=== PATIENT | female | born 1970 | race Caucasian/White ===

== ENCOUNTER 2016-08-26 23:26 | Emergency (ER) | payer SELFPAY ==
[~2016-08-26 23:26] MED LIST: DOXY100T PO; LORT5TAB PO; SULF-154 PO; Z.0.NO CURRENT MEDS
[2016-08-26 23:28] VITALS: BP 135/85; PULSE 86; RESP 18; TEMP 98.1; O2SAT 97
[2016-08-28] MEDS ORDERED: BUSP10TA PO (14:56)
== END 2016-08-27 00:51 | disposition left against medical advice (07) ==
LOC: NED 23:26
DX: R68.89 Other general symptoms and signs (principal)
CPT/HCPCS: 99281

== ENCOUNTER 2016-08-27 13:21 | Emergency (ER) | payer SELFPAY ==
[~2016-08-27] VITALS: Ht 154.9 cm; Wt 61.0 kg
[2016-08-27 13:23] VITALS: BP 116/62; PULSE 84; RESP 20; TEMP 97.9; O2SAT 97
--- NOTE | 2016-08-27 13:53 | PD ---
HPI . audio hallucinations for 1 mt Chief Complaint: Psychiatric Symptoms Time Seen by Provider: 13:53 Travel History International Travel<30 days: No Contact w/Intl Traveler<30days: No Traveled to known affect area: No History of Present Illness HPI 46-year-old female with history of depression here with complaints of audio hallucinations for the past month. Patient says that she was previously enrolled in a psych facility at a three-day observation period for her issues and no abnormalities were found. Patient says she is continue to experience audio hallucinations for one month. Initially she said they were just little noises, but now she hears voices. These voices have often times told her to harm herself or others, however she does not have any suicidal or homicidal ideation. She is concerned as the voices seem to be getting more prominent. She tells me she is very concerned because she does not have any family history of schizophrenia or other mental disorders. She has become a little bit overwhelmed that she is reading a lot of information on the Internet. She is from [place] and decided to come to the emergency department here as she has family members locally. She has no medical complaints. [facility] Past Medical History Tubal Ligation: Yes Social History Alcohol Use: No Tobacco Use: No Substance Use: No Allergies-Medications (Allergen,Severity, Reaction): Coded Allergies: Ibuprofen (Verified Allergy, Severe, RASH, 08/27/16) Robitussin (Verified Allergy, Mild, RASH, 08/27/16) Reported Meds & Prescriptions Reported Meds & Active Scripts Active Lortab 5/500 (Acetaminophen/Hydrocodone Bitart) 5 Mg/500 Mg Tab 1 Tab PO Q6HPRN FOR PAIN Septra Ds (Trimethoprim/Sulfamethoxazole) Tab 1 Tab PO BID Doxycycline Hyclate 100 Mg Tab 100 Mg PO BID Reported No Current Meds (Miscellaneous Medication) Misc Review of Systems General / Constitutional: No: Fever Eyes: No: Visual changes HENT: No: Headaches Cardiovascular: No: Chest Pain or Discomfort Respiratory: No: Shortness of Breath Gastrointestinal: No: Abdominal Pain Genitourinary: No: Dysuria Musculoskeletal: No: Pain Skin: No Rash Neurologic: No: Weakness Psychiatric: Positive: Other (audio hallucinations), No: Depression Endocrine: No: Polydipsia Hematologic/Lymphatic: No: Easy Bruising Physical Exam Narrative GENERAL: AAO x 3, no acute distress, Well-nourished, well-developed patient. SKIN: Warm and dry. No visible rashes or bruising. HEAD: Normocephalic and atraumatic. EYES: No scleral icterus. No injection or drainage. EOM intact, PERRLA ENT: No nasal drainage noted. Mucous membranes pink. Airway patent. NECK: Supple, trachea midline. No JVD. CARDIOVASCULAR: Regular rate and rhythm without murmurs, gallops, or rubs. RESPIRATORY: Breath sounds equal bilaterally. No accessory muscle use. No rhonchi or rales. GASTROINTESTINAL: Abdomen soft, non-tender, nondistended. EXTREMITIES: No cyanosis or edema. BACK: Nontender without obvious deformity. No CVA tenderness. NEURO: CN II through XII intact, strength in upper extremities normal, upper and lower extremity strength 5 out of 5, finger-nose test normal, no focal neuro deficits PSYCH: AAO x 3, normal affect. Data Data Last Documented VS Vital Signs Date Time Temp Pulse Resp B/P Pulse Ox O2 Delivery O2 Flow Rate FiO2 08/27/16 13:23 97.9 84 20 116/62 97 Room Air Orders Complete Blood Count With Diff (08/27/16 13:54) Comprehensive Metabolic Panel (08/27/16 13:54) Urinalysis - C+S If Indicated (08/27/16 13:54) Beta Hcg (Quant/Titer) (08/27/16 13:54) Psych Screen (08/27/16 13:54) Drug Screen, Random Urine (08/27/16 13:54) Alcohol (Ethanol) (08/27/16 13:54) Labs Laboratory Tests Test 08/27/16 08/27/16 08/27/16 13:54 14:40 14:45 Urine Color LIGHT-YELLOW Urine Turbidity CLEAR Urine pH 6.0 Urine Specific [place] 1.006 Urine Protein NEG mg/dL Urine Glucose (UA) NEG mg/dL Urine Ketones NEG mg/dL Urine Occult Blood TRACE Urine Nitrite NEG Urine Bilirubin NEG Urine Urobilinogen LESS THAN 2.0 MG/DL Urine Leukocyte Esterase NEG Urine RBC LESS THAN 1 /hpf Urine WBC LESS THAN 1 /hpf Urine Squamous Epithelial 1 /hpf Cells Microscopic Urinalysis Comment CULT NOT INDICATED Urine Opiates Screen NEG Urine Barbiturates Screen NEG Urine Amphetamines Screen NEG Urine Benzodiazepines Screen NEG Urine Cocaine Screen NEG Urine Cannabinoids Screen NEG White Blood Count 7.6 TH/MM3 Red Blood Count 4.63 MIL/MM3 Hemoglobin 14.4 GM/DL Hematocrit 41.4 % Mean Corpuscular Volume 89.4 FL Mean Corpuscular Hemoglobin 31.0 PG Mean Corpuscular Hemoglobin 34.7 % Concent Red Cell Distribution Width 12.2 % Platelet Count 234 TH/MM3 Mean Platelet Volume 9.3 FL Neutrophils (%) (Auto) 65.5 % Lymphocytes (%) (Auto) 24.5 % Monocytes (%) (Auto) 6.4 % Eosinophils (%) (Auto) 2.8 % Basophils (%) (Auto) 0.8 % Neutrophils # (Auto) 5.0 TH/MM3 Lymphocytes # (Auto) 1.9 TH/MM3 Monocytes # (Auto) 0.5 TH/MM3 Eosinophils # (Auto) 0.2 TH/MM3 Basophils # (Auto) 0.1 TH/MM3 CBC Comment DIFF FINAL Differential Comment Sodium Level 141 MEQ/L Potassium Level 3.8 MEQ/L Chloride Level 105 MEQ/L Carbon Dioxide Level 30.2 MEQ/L Anion Gap 6 MEQ/L Blood Urea Nitrogen 9 MG/DL Creatinine 0.94 MG/DL Estimat Glomerular Filtration 64 ML/MIN Rate Random Glucose 84 MG/DL Calcium Level 9.3 MG/DL Total Bilirubin 0.3 MG/DL Aspartate Amino Transf 16 U/L (AST/SGOT) Alanine Aminotransferase 24 U/L (ALT/SGPT) Alkaline Phosphatase 62 U/L Total Protein 7.2 GM/DL Albumin 3.9 GM/DL Human Chorionic Gonadotropin, LESS THAN 1 Quant MIU/ML Ethyl Alcohol Level LESS THAN 3 MG/DL MDM Medical Decision Making Medical Screen Exam Complete: Yes Emergency Medical Condition: Yes Medical Record Reviewed: Yes Differential Diagnosis Schizophrenia, drug induced mood disorder, depression, bipolar disorder, Narrative Course 46-year-old female here with complaints of auditory hallucinations. The voices have become a little bit more prominent over the past month. I will go ahead and check labs and if they're within normal limits, we will proceed with a psych screen. Labs reviewed and WNL. Patient cleared for psych screen. Laboratory Tests Test 08/27/16 08/27/16 08/27/16 13:54 14:40 14:45 Urine Color LIGHT-YELLOW Urine Turbidity CLEAR Urine pH 6.0 Urine Specific [place] 1.006 Urine Protein NEG mg/dL Urine Glucose (UA) NEG mg/dL Urine Ketones NEG mg/dL Urine Occult Blood TRACE Urine Nitrite NEG Urine Bilirubin NEG Urine Urobilinogen LESS THAN 2.0 MG/DL Urine Leukocyte Esterase NEG Urine RBC LESS THAN 1 /hpf Urine WBC LESS THAN 1 /hpf Urine Squamous Epithelial 1 /hpf Cells Microscopic Urinalysis Comment CULT NOT INDICATED Urine Opiates Screen NEG Urine Barbiturates Screen NEG Urine Amphetamines Screen NEG Urine Benzodiazepines Screen NEG Urine Cocaine Screen NEG Urine Cannabinoids Screen NEG White Blood Count 7.6 TH/MM3 Red Blood Count 4.63 MIL/MM3 Hemoglobin 14.4 GM/DL Hematocrit 41.4 % Mean Corpuscular Volume 89.4 FL Mean Corpuscular Hemoglobin 31.0 PG Mean Corpuscular Hemoglobin 34.7 % Concent Red Cell Distribution Width 12.2 % Platelet Count 234 TH/MM3 Mean Platelet Volume 9.3 FL Neutrophils (%) (Auto) 65.5 % Lymphocytes (%) (Auto) 24.5 % Monocytes (%) (Auto) 6.4 % Eosinophils (%) (Auto) 2.8 % Basophils (%) (Auto) 0.8 % Neutrophils # (Auto) 5.0 TH/MM3 Lymphocytes # (Auto) 1.9 TH/MM3 Monocytes # (Auto) 0.5 TH/MM3 Eosinophils # (Auto) 0.2 TH/MM3 Basophils # (Auto) 0.1 TH/MM3 CBC Comment DIFF FINAL Differential Comment Sodium Level 141 MEQ/L Potassium Level 3.8 MEQ/L Chloride Level 105 MEQ/L Carbon Dioxide Level 30.2 MEQ/L Anion Gap 6 MEQ/L Blood Urea Nitrogen 9 MG/DL Creatinine 0.94 MG/DL Estimat Glomerular Filtration 64 ML/MIN Rate Random Glucose 84 MG/DL Calcium Level 9.3 MG/DL Total Bilirubin 0.3 MG/DL Aspartate Amino Transf 16 U/L (AST/SGOT) Alanine Aminotransferase 24 U/L (ALT/SGPT) Alkaline Phosphatase 62 U/L Total Protein 7.2 GM/DL Albumin 3.9 GM/DL Human Chorionic Gonadotropin, LESS THAN 1 Quant MIU/ML Ethyl Alcohol Level LESS THAN 3 MG/DL Diagnosis Primary Impression: Auditory hallucination Condition: Stable Jessica Fernandez Aug 27, 2016 13:53
[2016-08-27 15:13] LABS: BLOOD, URINE TRACE (NEG); COMMENT (UR) CULT NOT INDICATED; CULTURE IF INDICATED CULT NOT INDICATED; GLUCOSE,URINE NEG (NEG); KETONE, URINE NEG (NEG); NITRITE,URINE NEG (NEG); SQUAMOUS EPITHELIAL CELL URINE 1 /hpf (0-5); URINE COLOR LIGHT-YELLOW (YELLW/STRAW)
[2016-08-27 15:13] LABS: BASOPHIL # 0.1 TH/MM3 (0-0.2); BASOPHIL % 0.8 % (0.0-2.0); EOSINOPHIL # 0.2 TH/MM3 (0-0.4); EOSINOPHIL % 2.8 % (0.0-4.0); HEMATOCRIT 41.4 % (35.0-46.0); HEMO FLAGS DIFF FINAL; LYMPH % 24.5 % (9.0-44.0); LYMPHOCYTE # 1.9 TH/MM3 (1.0-4.8); MEAN CELL VOLUME 89.4 FL (80.0-100.0); MEAN CORPUSCULAR HGB CONC 34.7 % (32.0-36.0); MONO % 6.4 % (0.0-8.0); NEUT % 65.5 % (16.0-70.0); PLATELET COUNT 234 TH/MM3 (150-450); RED BLOOD COUNT 4.63 MIL/MM3 (4.00-5.30); RED CELL DISTRIBUTION WIDTH 12.2 % (11.6-17.2); WHITE BLOOD COUNT 7.6 TH/MM3 (4.0-11.0)
[2016-08-27 15:18] LABS: AMPHETAMINE, URINE NEG (NEG); BARBITURATES, URINE NEG (NEG); COCAINE, URINE NEG (NEG)
[2016-08-27 15:33] LABS: ANION GAP 6 MEQ/L (5-15); AST (GOT) 16 U/L (15-37); BICARBONATE 30.2 MEQ/L (21.0-32.0); BLOOD UREA NITROGEN 9 MG/DL (7-18); CHLORIDE 105 MEQ/L (98-107); GLOMERULAR FILTRATION RATE 64 ML/MIN (>89); POTASSIUM 3.8 MEQ/L (3.5-5.1); SODIUM (NA) 141 MEQ/L (136-145)
[2016-08-27 15:38] LABS: ALKALINE PHOSPHATASE 62 U/L (45-117); ALT (GPT) 24 U/L (10-53); BETA HCG QUANT LESS THAN 1 MIU/ML (0-5); TOTAL BILIRUBIN ADULT 0.3 MG/DL (0.2-1.0)
[2016-08-27 16:50] VITALS: BP 122/76; PULSE 72; RESP 16; O2SAT 99
[2016-08-27 18:29] VITALS: BP 126/73; PULSE 80; RESP 16; TEMP 97.6; O2SAT 98
[2016-08-27] MEDS ORDERED: ACETAMINOPHEN 325 MG TAB PO ONE (20:45)
[2016-08-27 22:39] VITALS: BP 116/70; PULSE 80; RESP 18; O2SAT 99
[2016-08-28 02:42] VITALS: BP 113/59; PULSE 67; RESP 18
[2016-08-28 06:14] VITALS: BP 119/63; PULSE 88; RESP 20
[2016-08-28 09:37] VITALS: BP 119/63; TEMP 98.3
[2016-08-28] MEDS ORDERED: BUSP10TA PO (14:56)
== END 2016-08-28 09:30 | disposition home or self-care (01) ==
LOC: NEPD 13:21 → NEPJ 08-28 09:30
DX: R44.0 Auditory hallucinations (principal)
CPT/HCPCS: 80053; 80307; 81001; 84702; 85025; 99284

== ENCOUNTER 2016-08-28 13:52 | Emergency (ER) | payer SELFPAY ==
[~2016-08-28] VITALS: Ht 154.9 cm; Wt 60.0 kg
[2016-08-28 13:53] VITALS: BP 132/77; PULSE 86; RESP 20; TEMP 98.3; O2SAT 97
--- NOTE | 2016-08-28 13:58 | PD ---
Physical Exam Date Seen by Provider: Aug 28, 2016 Time Seen by Provider: 13:58 Data Data Last Documented VS Vital Signs Date Time Temp Pulse Resp B/P Pulse Ox O2 Delivery O2 Flow Rate FiO2 08/28/16 13:53 98.3 86 20 132/77 97 Room Air MDM Supervised Visit with MARLEEN: Indira Martin Aug 28, 2016 13:58
--- NOTE | 2016-08-28 14:14 | PD ---
Physical Exam Date Seen by Provider: Aug 28, 2016 Time Seen by Provider: 14:12 Data Data Last Documented VS Vital Signs Date Time Temp Pulse Resp B/P Pulse Ox O2 Delivery O2 Flow Rate FiO2 08/28/16 13:53 98.3 86 20 132/77 97 Room Air [facility] Supervised Visit with MARLEEN: No Narrative Course 46 YO F seeks voluntary psychiatric evaluation. Denies SI/ HI. States that she was here yesterday, doesn't "fell well enough to be discharged." Endorses history of anxiety. Vitals reviewed. Awaiting bed placement. Indira Parada Aug 28, 2016 14:14
[2016-08-28] MEDS ORDERED: BUSP10TA PO (14:56)
--- NOTE | 2016-08-28 14:58 | PD ---
HPI Chief Complaint: Psychiatric Symptoms Time Seen by Provider: 14:53 Travel History International Travel<30 days: No Contact w/Intl Traveler<30days: No Traveled to known affect area: No History of Present Illness HPI 46 yo female here for voluntary psych evaluation. Patient has a history of adjustment disorder and depression and she was just released this morning for same. Denies any new symptoms other than feeling more anxious because she is "alone" at this time. She just started a new medication 3 weeks ago. SHe is from [place]. Denies any suicidal or homicidal ideation. No drug abuse. She is staying here to house sit for her mother. no pain. She did not took her meds yesterday or today. Unclear motive or her coming here today. She is very anxious and not a good historian. PFSH Past Medical History Tubal Ligation: Yes Social History Alcohol Use: No Tobacco Use: No Substance Use: Yes Allergies-Medications (Allergen,Severity, Reaction): Coded Allergies: Ibuprofen (Verified Allergy, Severe, RASH, 08/27/16) Robitussin (Verified Allergy, Mild, RASH, 08/27/16) Reported Meds & Prescriptions Reported Meds & Active Scripts Active Lortab 5/500 (Acetaminophen/Hydrocodone Bitart) 5 Mg/500 Mg Tab 1 Tab PO Q6HPRN FOR PAIN Septra Ds (Trimethoprim/Sulfamethoxazole) Tab 1 Tab PO BID Doxycycline Hyclate 100 Mg Tab 100 Mg PO BID Reported No Current Meds (Miscellaneous Medication) Misc Review of Systems ROS Limitations: Psychotic Except as stated in HPI: all other systems reviewed are Neg Physical Exam Exam Limitations: Psychotic Narrative GENERAL: SKIN: Warm and dry. HEAD: Atraumatic. Normocephalic. EYES: Pupils equal and round. No scleral icterus. No injection or drainage. ENT: No nasal bleeding or discharge. Mucous membranes pink and moist. Tongue is midline. No uvula deviation. NECK: Trachea midline. No JVD. CARDIOVASCULAR: Regular rate and rhythm. No murmurs, S3, S4. RESPIRATORY: No accessory muscle use. Clear to auscultation. Breath sounds equal bilaterally. GASTROINTESTINAL: Abdomen soft, non-tender, nondistended. Hepatic and splenic margins not palpable. MUSCULOSKELETAL: Extremities without clubbing, cyanosis, or edema. No obvious deformities. Full range of motion of the upper and lower extremities bilaterally. 2+ pulses bilaterally. NEUROLOGICAL: Awake and alert. No obvious cranial nerve deficits. Motor grossly within normal limits. Five out of 5 muscle strength in the arms and legs. Normal speech. PSYCHIATRIC: Anxious mood and affect; insight and judgment normal. Data Data Last Documented VS Vital Signs Date Time Temp Pulse Resp B/P Pulse Ox O2 Delivery O2 Flow Rate FiO2 08/28/16 13:53 98.3 86 20 132/77 97 Room Air MDM Medical Decision Making Medical Screen Exam Complete: Yes Emergency Medical Condition: Yes Medical Record Reviewed: Yes Differential Diagnosis Depression versus suicidal ideation versus anxiety versus adjustment disorder versus mood disorder versus bipolar disorder versus schizophrenia versus paranoid disorder versus psychosis versus substance abuse versus alcohol abuse versus alcohol induced psychosis versus homicidality addition versus cutting versus personality disorder Narrative Course 46-year-old female that presents to the ED for evaluation of psych. Patient was properly examined and was found to have signs and symptoms consistent psychiatric illness. No sign of acute medical distress. Patient was just seen in have labs yesterday. No need for new once today. Patient was just released less than 8 hours ago. Patient was medically cleared. Okay to be seen by psych. Mental health screening was discussed with the patient. Diagnosis Primary Impression: Adjustment disorder with anxiety Rolo Stauffer Aug 28, 2016 14:58
[2016-08-28 15:28] VITALS: BP 132/77; TEMP 98
== END 2016-08-28 15:30 | disposition home or self-care (01) ==
LOC: NEPJ 13:52
DX: F43.22 Adjustment disorder with anxiety (principal); F33.8 Other recurrent depressive disorders
CPT/HCPCS: 99284

== ENCOUNTER 2016-08-28 18:12 | Emergency (ER) | payer SELFPAY ==
[~2016-08-28] VITALS: Ht 154.9 cm; Wt 60.0 kg
[~2016-08-28 18:12] MED LIST changes: +BUSP10TA PO
[2016-08-28 18:27] VITALS: BP 125/72; PULSE 82; RESP 16; TEMP 98; O2SAT 98
== END 2016-08-28 19:06 | disposition left against medical advice (07) ==
LOC: NED 18:12
DX: F41.9 Anxiety disorder, unspecified (principal)
CPT/HCPCS: 99281

== ENCOUNTER 2016-11-06 21:45 | Emergency (ER) | payer SELFPAY ==
[~2016-11-06] VITALS: Ht 154.9 cm; Wt 58.0 kg
[2016-11-06 21:56] VITALS: BP 126/70; PULSE 74; RESP 18; TEMP 98.2; O2SAT 99
[2016-11-06 23:28] LABS: AUTOMATED NEUTROPHIL # 5.2 TH/MM3 (1.8-7.7); BASOPHIL % 0.4 % (0.0-2.0); EOSINOPHIL # 0.2 TH/MM3 (0-0.4); EOSINOPHIL % 2.2 % (0.0-4.0); HEMATOCRIT 41.8 % (35.0-46.0); HEMO FLAGS DIFF FINAL; LYMPH % 25.2 % (9.0-44.0); MEAN CORPUSCULAR HEMOGLOBIN 31.2 PG (27.0-34.0); MEAN CORPUSCULAR HGB CONC 34.3 % (32.0-36.0); MONO % 7.1 % (0.0-8.0); NEUT % 65.1 % (16.0-70.0); PLATELET COUNT 241 TH/MM3 (150-450); RED CELL DISTRIBUTION WIDTH 12.4 % (11.6-17.2)
[2016-11-06] MEDS ORDERED: BUSP30TA PO (23:30)
[2016-11-06 23:52] LABS: ANION GAP 6 MEQ/L (5-15); AST (GOT) 16 U/L (15-37); BICARBONATE 27.7 MEQ/L (21.0-32.0); BLOOD UREA NITROGEN 14 MG/DL (7-18); CHLORIDE 104 MEQ/L (98-107); GLOMERULAR FILTRATION RATE 59 ML/MIN (>89); POTASSIUM 3.4 MEQ/L (3.5-5.1); SODIUM (NA) 138 MEQ/L (136-145)
[2016-11-06 23:53] LABS: ALT (GPT) 28 U/L (10-53)
[2016-11-06 23:55] LABS: ALCOHOL LESS THAN 3 MG/DL (0-5); ALKALINE PHOSPHATASE 65 U/L (45-117); TOTAL BILIRUBIN ADULT 0.5 MG/DL (0.2-1.0)
--- NOTE | 2016-11-06 23:58 | PD ---
HPI Chief Complaint: Psychiatric Symptoms Time Seen by Provider: 23:48 Travel History International Travel<30 days: No Contact w/Intl Traveler<30days: No Traveled to known affect area: No History of Present Illness HPI 46-year-old female presents to the emergency department for psychiatric evaluation. Patient is voluntary. She states that she is having auditory hallucinations since May. Patient had a 3 day stay at a mental health facility called [facility]. She was diagnosed with anxiety and given a prescription for BuSpar. She states the auditory hallucinations still remain. She states that they tell her to do strange things such as to turn the light off or do certain things. She also has some tactile hallucinations of someone touching her. The patient has not been following up outpatient for this issue. Patient denies any headache, fevers, chest pain, shortness breath, abdominal pain, nausea, vomiting, diarrhea. Patient is on BuSpar for anxiety. She is not on any other medications. Patient denies any suicidal or homicidal ideation. Patient states she wants to know why she is having the hallucinations. She states that she has changed everything her life including buying new clothes, eating healthier, but the auditory hallucinations remain. [facility] Past Medical History Medical History: Denies Significant Hx ?: Not LMP: 2 months ago Tubal Ligation: Yes Past Surgical History Surgical History: No Previous Surgery Social History Alcohol Use: Yes (rare) Tobacco Use: No Substance Use: No Allergies-Medications (Allergen,Severity, Reaction): Coded Allergies: ibuprofen (Unverified Allergy, Severe, RASH, 11/03/16) guaifenesin (Unverified Allergy, Mild, RASH, 11/03/16) shellfish derived (Verified Allergy, Unknown, 11/06/16) Reported Meds & Prescriptions Reported Meds & Active Scripts Active Reported Buspirone (Buspirone HCl) 30 Mg Tab 30 Mg PO DAILY Review of Systems Except as stated in HPI: all other systems reviewed are Neg Physical Exam Narrative GENERAL: Well-nourished, well-developed female patient, ambulatory. Afebrile. SKIN: Focused skin assessment warm/dry. HEAD: Normocephalic. Atraumatic. EYES: No scleral icterus. No injection or drainage. NECK: Supple, trachea midline. No JVD or lymphadenopathy. CARDIOVASCULAR: Regular rate and rhythm without murmurs, gallops, or rubs. RESPIRATORY: Breath sounds equal bilaterally. No accessory muscle use. Lungs sounds are clear to auscultation. GASTROINTESTINAL: Abdomen soft, non-tender, nondistended. MUSCULOSKELETAL: No cyanosis, or edema. PSYCHIATRIC: No active hallucinations at this time. Data Data Last Documented VS Vital Signs Date Time Temp Pulse Resp B/P Pulse Ox O2 Delivery O2 Flow Rate FiO2 11/06/16 23:30 16 11/06/16 21:56 98.2 74 126/70 99 Orders Complete Blood Count With Diff (11/06/16 22:55) Comprehensive Metabolic Panel (11/06/16 22:55) Psych Screen (11/06/16 22:55) Salicylates (Aspirin) (11/06/16 22:58) Ed Urine Pregnancytest Poc (11/06/16 22:58) Drug Screen, Random Urine (11/06/16 23:00) Alcohol (Ethanol) (11/06/16 23:10) Labs Laboratory Tests Test 11/06/16 11/06/16 23:05 23:10 Urine Opiates Screen NEG Urine Barbiturates Screen NEG Urine Amphetamines Screen NEG Urine Benzodiazepines Screen NEG Urine Cocaine Screen NEG Urine Cannabinoids Screen NEG White Blood Count 8.0 TH/MM3 Red Blood Count 4.60 MIL/MM3 Hemoglobin 14.4 GM/DL Hematocrit 41.8 % Mean Corpuscular Volume 91.0 FL Mean Corpuscular Hemoglobin 31.2 PG Mean Corpuscular Hemoglobin 34.3 % Concent Red Cell Distribution Width 12.4 % Platelet Count 241 TH/MM3 Mean Platelet Volume 8.3 FL Neutrophils (%) (Auto) 65.1 % Lymphocytes (%) (Auto) 25.2 % Monocytes (%) (Auto) 7.1 % Eosinophils (%) (Auto) 2.2 % Basophils (%) (Auto) 0.4 % Neutrophils # (Auto) 5.2 TH/MM3 Lymphocytes # (Auto) 2.0 TH/MM3 Monocytes # (Auto) 0.6 TH/MM3 Eosinophils # (Auto) 0.2 TH/MM3 Basophils # (Auto) 0.0 TH/MM3 CBC Comment DIFF FINAL Differential Comment MDM Medical Decision Making Medical Screen Exam Complete: Yes Emergency Medical Condition: Yes Medical Record Reviewed: Yes Differential Diagnosis Adjustment disorder versus anxiety versus depression Narrative Course 46-year-old female presents to the emergency Department voluntarily for psychiatric evaluation. CBC, CMP, alcohol level, urine drug screen ordered and pending. CBC is unremarkable. CMP shows no acute abnormality. Alcohol level is less than 3. Urine drug screen is negative. Patient is medically cleared for psychiatric screening and disposition. The patient was discharged in stable condition with instructions, including return instructions and follow up instructions. Diagnosis Primary Impression: Auditory hallucination Additional Instructions: Patient is medically cleared for psychiatric screening and disposition Condition: Stable Edel Gomez Nov 06, 2016 23:58
[2016-11-07 01:00] VITALS: BP 126/65; PULSE 85; RESP 18; TEMP 98.2; O2SAT 100
[2016-11-07] MEDS ORDERED: diphenhydrAMINE HCL 50 MG/ML VIAL IM ONE (01:30)
[2016-11-07 07:08] VITALS: BP 116/68; PULSE 97; RESP 18; O2SAT 99
[2016-11-07 11:18] VITALS: BP 109/65; PULSE 77; RESP 18; TEMP 98.2; O2SAT 97
[2016-11-07 14:00] VITALS: BP 111/66; PULSE 76; RESP 18
--- NOTE | 2016-11-07 14:58 | PD ---
History of Present Illness Chief Complaint: Psychiatric Symptoms Time Seen by Provider: 14:30 Travel History International Travel<30 Days: No Contact w/Intl Traveler<30days: No Known affected area: No Legal Status Legal Status: Voluntary History of Present Illness: History of Present Illness HPI 46-year-old female with a reported history of anxiety who presents to the emergency department for psychiatric evaluation on a voluntary basis. She states that she has been experiencing auditory hallucinations since May. She states that they tell her to do strange things such as to turn the light off or do certain things, they are at time unintelligible, at times they are" funny" in nature. Patient had a 3 day stay at a mental health facility called [facility] and underwent a complete medical evaluation including CT scans of her head . She was diagnosed with anxiety and given a prescription for BuSpar.She took the Buspar for some time but has stopped this medication and has just started taking it again 3 days ago. She also has some tactile hallucinations of someone touching her. This happens mostly at nighttime when she is trying to fall asleep. EMR is reviewed. She was seen in ED in August 27 and with same complaints. Patient is seen today. She is wearing hospital gown. Adequate hygiene. She is calm and engaging. her speech is clear. She does not appear internally preoccupied and does not appear to be responding to internal stimuli. She talks freely of her experiences and laughs at times . There is no other symptom. No pati. No depression and no suicidal or homicidal ideation, intent or plan. She is requesting something to help her sleep until her appointment at [facility] on Wednesday. PFSH Past Medical History Medical History: Denies Significant Hx ?: Not LMP: 2 months ago Tubal Ligation: Yes Past Surgical History Surgical History: No Previous Surgery Psychiatric History Psychiatric History Hx Psychiatric Treatment: PT STATES SHE WAS ADMITTED TO [facility] IN JUNE. History of Inpatient Treatment: Yes Guns or firearms in home: No Social History Single female. Unemployed. 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 She moved to [facility] 2 months ago and is living with friends. Hx Alcohol Use: Yes (rare) Hx Tobacco Use: No Hx Substance Use: Yes Substance Use Type: Alcohol, Amphetamines-Stimulants, Nicotine/Cigarettes, Cocaine Hx of Substance Use Treatment: No Family Psychiatric History Negative Allergies-Medications (Allergen,Severity, Reaction): Coded Allergies: ibuprofen (Unverified Allergy, Severe, RASH, 11/03/16) guaifenesin (Unverified Allergy, Mild, RASH, 11/03/16) shellfish derived (Verified Allergy, Unknown, 11/06/16) Reported Meds & Prescriptions Reported Meds & Active Scripts Active Reported Buspirone (Buspirone HCl) 30 Mg Tab 30 Mg PO DAILY Review of Systems Except as stated in HPI: all other systems reviewed are Neg Exam Alert: Yes [place]: Person (ox4) Mood: Calm Affect: Appropriate Speech: Clear, Logical Eye Contact: Normal Memory Intact: Comment (Not impaired) Hallucinations: Other (None at present) Delusions: No Suicidal: Ideation ( deneis any) Homicidal: Ideation (Denies any) Insight/Judgement Fair,not impaired. MDM Medical Decision Making Medical Record Reviewed: Yes Assessment/Plan 46-year-old female with a reported history of anxiety who presents to the emergency department for psychiatric evaluation on a voluntary basis. She states that she has been experiencing auditory hallucinations since May. She states that they tell her to do strange things such as to turn the light off or do certain things, they are at time unintelligible, at times they are" funny" in nature. At this time the patient is not experiencing any symptoms, is in contact with reality, cognitively intact. She does nto share any history of trauma but this will need to be explored in outpatient therapy. She does not present She will like to be discharged and will follow up with [facility] on Wednesday. She requests something to help her sleep. I have advised her to continue with the Buspar. psychoeducation is provided. Orders Complete Blood Count With Diff (11/06/16 22:55) Comprehensive Metabolic Panel (11/06/16 22:55) Psych Screen (11/06/16 22:55) Salicylates (Aspirin) (11/06/16 22:58) Ed Urine Pregnancytest Poc (11/06/16 22:58) Drug Screen, Random Urine (11/06/16 23:00) Alcohol (Ethanol) (11/06/16 23:10) Diphenhydramine Inj (Benadryl Inj) (11/07/16 01:30) Diet Regular Basic (11/07/16 Breakfast) Diet Regular Basic (11/07/16 Dinner) Results Vital Signs Date Time Temp Pulse Resp B/P Pulse Ox O2 Delivery O2 Flow Rate FiO2 11/07/16 14:00 76 18 111/66 Room Air 11/07/16 11:18 98.2 77 18 109/65 97 Room Air 11/07/16 07:08 97 18 116/68 99 11/07/16 01:00 98.2 85 18 126/65 100 11/06/16 23:30 16 11/06/16 21:56 98.2 74 18 126/70 99 Laboratory Tests Test 11/06/16 11/06/16 23:05 23:10 Urine Opiates Screen NEG Urine Barbiturates Screen NEG Urine Amphetamines Screen NEG Urine Benzodiazepines Screen NEG Urine Cocaine Screen NEG Urine Cannabinoids Screen NEG White Blood Count 8.0 Red Blood Count 4.60 Hemoglobin 14.4 Hematocrit 41.8 Mean Corpuscular Volume 91.0 Mean Corpuscular Hemoglobin 31.2 Mean Corpuscular Hemoglobin 34.3 Concent Red Cell Distribution Width 12.4 Platelet Count 241 Mean Platelet Volume 8.3 Neutrophils (%) (Auto) 65.1 Lymphocytes (%) (Auto) 25.2 Monocytes (%) (Auto) 7.1 Eosinophils (%) (Auto) 2.2 Basophils (%) (Auto) 0.4 Neutrophils # (Auto) 5.2 Lymphocytes # (Auto) 2.0 Monocytes # (Auto) 0.6 Eosinophils # (Auto) 0.2 Basophils # (Auto) 0.0 CBC Comment DIFF FINAL Differential Comment Sodium Level 138 Potassium Level 3.4 Chloride Level 104 Carbon Dioxide Level 27.7 Anion Gap 6 Blood Urea Nitrogen 14 Creatinine 1.02 Estimat Glomerular Filtration 59 Rate Random Glucose 91 Calcium Level 8.5 Total Bilirubin 0.5 Aspartate Amino Transf 16 (AST/SGOT) Alanine Aminotransferase 28 (ALT/SGPT) Alkaline Phosphatase 65 Total Protein 7.7 Albumin 4.3 Salicylates Level LESS THAN 1.7 Ethyl Alcohol Level LESS THAN 3 Diagnosis Primary Impression: Adjustment disorder with anxiety Psychiatrically Cleared: Yes Additional Instructions: Patient is medically cleared for psychiatric screening and disposition Med/ Other Pt Specific Info: Prescription(s) given Prescriptions Hydroxyzine Pamoate (Vistaril)50 Mg Cap50 Mg PO HS #10 CAP Ref 0 Prov:Bria Lee 11/07/16 Disposition: 01 DISCHARGE HOME Condition: Stable Bria Lee Nov 07, 2016 14:58
[2016-11-07] MEDS ORDERED: VIST50CA PO (15:00)
== END 2016-11-07 15:28 | disposition home or self-care (01) ==
LOC: NEPJ 21:45
DX: F43.22 Adjustment disorder with anxiety (principal); R44.0 Auditory hallucinations
CPT/HCPCS: 80053; 80307; 84703; 85025; 96372; 99284; J1200

== ENCOUNTER 2017-07-29 12:50 | Inpatient (IN) | payer SELFPAY ==
[~2017-07-29] VITALS: Ht 154.9 cm; Wt 56.5 kg
[~2017-07-29 12:50] MED LIST changes: -BUSP10TA PO; +BUSP30TA PO; -DOXY100T PO; -LORT5TAB PO; -SULF-154 PO; +VIST50CA PO; -Z.0.NO CURRENT MEDS
[2017-07-29 13:03] VITALS: BP 119/68; PULSE 104; RESP 18; TEMP 98.1; O2SAT 97
[2017-07-29 13:30] LABS: AUTOMATED NEUTROPHIL # 5.9 TH/MM3 (1.8-7.7); BASOPHIL # 0.1 TH/MM3 (0-0.2); BASOPHIL % 0.6 % (0.0-2.0); EOSINOPHIL # 0.6 TH/MM3 (0-0.4); EOSINOPHIL % 6.9 % (0.0-4.0); HEMATOCRIT 44.1 % (35.0-46.0); LYMPH % 22.8 % (9.0-44.0); LYMPHOCYTE # 2.1 TH/MM3 (1.0-4.8); MEAN CELL VOLUME 92.7 FL (80.0-100.0); MEAN CORPUSCULAR HEMOGLOBIN 31.4 PG (27.0-34.0); MEAN CORPUSCULAR HGB CONC 33.9 % (32.0-36.0); MEAN PLATELET VOLUME 8.4 FL (7.0-11.0); MONO % 6.5 % (0.0-8.0); MONOCYTE # 0.6 TH/MM3 (0-0.9); NEUT % 63.2 % (16.0-70.0); PLATELET COUNT 283 TH/MM3 (150-450); RED BLOOD COUNT 4.76 MIL/MM3 (4.00-5.30); RED CELL DISTRIBUTION WIDTH 12.5 % (11.6-17.2); WHITE BLOOD COUNT 9.3 TH/MM3 (4.0-11.0)
[2017-07-29 13:44] LABS: BACTERIA, URINE RARE /hpf; BILIRUBIN, URINE NEG (NEG); BLOOD, URINE NEG (NEG); GLUCOSE,URINE NEG (NEG); HYALINE CAST, URINE 14 /lpf (RARE); KETONE, URINE NEG (NEG); MUCUS URINE FEW /lpf (OCC); NITRITE,URINE NEG (NEG); PH, URINE 5.5 (5.0-8.5); SQUAMOUS EPITHELIAL CELL URINE 4 /hpf (0-5); URINE COLOR YELLOW (YELLW/STRAW); URINE LEUKOCYTE ESTERASE TRACE (NEG)
[2017-07-29 13:57] LABS: ALBUMIN 3.9 GM/DL (3.4-5.0); ALT (GPT) 22 U/L (10-53); AST (GOT) 15 U/L (15-37); BICARBONATE 25.8 MEQ/L (21.0-32.0); BLOOD UREA NITROGEN 13 MG/DL (7-18); CALCIUM 8.6 MG/DL (8.5-10.1); CHLORIDE 109 MEQ/L (98-107); CREATININE 1.14 MG/DL (0.50-1.00); GLOMERULAR FILTRATION RATE 51 ML/MIN (>89); GLUCOSE,RANDOM 117 MG/DL (74-106); SODIUM (NA) 144 MEQ/L (136-145)
[2017-07-29 13:59] LABS: ALKALINE PHOSPHATASE 85 U/L (45-117); TOTAL BILIRUBIN ADULT 0.4 MG/DL (0.2-1.0); TOTAL PROTEIN 7.7 GM/DL (6.4-8.2)
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
[2017-07-29 14:19] LABS: ACETAMINOPHEN LESS THAN 2.0 MCG/ML (10.0-30.0)
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
[2017-07-29] MEDS ORDERED: ALUMINUM/MAGNESIUM/SIMETH 30 ML CUP PO PRN (16:15)
[2017-07-29] MEDS ORDERED: LORazepam 2 MG/ML VIAL IM PRN ×2 (16:15)
[2017-07-29] MEDS ORDERED: MAGNESIUM HYDROXIDE SUSP 30 ML CUP PO PRN (16:15)
[2017-07-29] MEDS ORDERED: ACETAMINOPHEN 325 MG TAB PO PRN (16:15)
[2017-07-29] MEDS ORDERED: LORazepam 0.5 MG TAB PO PRN (16:15)
[2017-07-29] MEDS: clonazePAM 0.5 MG TAB PO SCH (20:59)
[2017-07-30 06:12] VITALS: BP 131/59; PULSE 98; RESP 17; TEMP 99; O2SAT 98
[2017-07-30 08:06] LABS: BICARBONATE 26.3 MEQ/L (21.0-32.0); BLOOD UREA NITROGEN 18 MG/DL (7-18); CALCIUM 8.9 MG/DL (8.5-10.1); CHLORIDE 110 MEQ/L (98-107); CHOLESTEROL 149 MG/DL (120-200); CREATININE 0.84 MG/DL (0.50-1.00); GLOMERULAR FILTRATION RATE 73 ML/MIN (>89); GLUCOSE,RANDOM 93 MG/DL (74-106); SODIUM (NA) 144 MEQ/L (136-145)
[2017-07-30 08:09] LABS: CHOLESTEROL/ HDL RATIO 3.79 RATIO; HDL CHOLESTEROL 39.3 MG/DL (40.0-60.0); LDL CHOLESTEROL 65 MG/DL (0-99); TRIGLYCERIDES 225 MG/DL (42-150)
[2017-07-30] MEDS: QUEtiapine FUMARATE 25 MG TAB PO SCH ×2 (08:59→12:47)
[2017-07-30] MEDS: clonazePAM 0.5 MG TAB PO SCH ×2 (08:59→20:57)
[2017-07-30] MEDS: NICOTINE 21 MG/24 HR PATCH T-DERMAL SCH (09:00)
[2017-07-30] MEDS ORDERED: diphenhydrAMINE HCL 50 MG CAP PO PRN ×2 (13:45→21:00)
[2017-07-30] MEDS ORDERED: hydrOXYzine HCL 50 MG TAB PO PRN (13:45)
--- NOTE | 2017-07-30 13:52 | HHI.PYPN ---
Subjective Remarks Patient initially seen by Dr. Rosado do the initial psychiatric history of physical, I have done the initial psychiatric admission template orders now down the med reconciliation review. Dr. Rosado was then first opinion petition supporting [place] act I agree with him patient does meet criteria under the [place] act for further psychiatric hospitalization on an involuntary basis. Less I will cosign second opinion petition supporting [place] act. Patient seen by me today with nurse less likely patient is alert oriented angry irritable with rapid pressured speech with some ideas of reference towards her family. She makes a vague reference to past psychiatric hospitalizations although she considers herself only having anxiety. And does not need any psychiatric medications. For now continue treatment Review of Systems Except as stated in HPI: all other systems reviewed are Neg Mental Status Examination Appearance: Appropriate Consciousness: Alert Orientation: x4 Motor Activity: Normal gait Speech: Unremarkable Language: Adequate Fund of Knowledge: Adequate Attention and Concentration: Adequate Memory: Unremarkable Mood: Appropriate Affect: Appropriate Thought Process & Associations: Intact Thought Content: Appropriate Hallucination Type: None Delusion Type: None Suicidal Ideation: No Suicidal Plan: No Suicidal Intention: No Homicidal Ideation: No Homicidal Plan: No Homicidal Intention: No Insight: Adequate Judgment: Adequate Results Labs Test 07/30/17 06:55 Blood Urea Nitrogen 18 MG/DL Creatinine 0.84 MG/DL Random Glucose 93 MG/DL Calcium Level 8.9 MG/DL Sodium Level 144 MEQ/L Potassium Level 4.4 MEQ/L Chloride Level 110 MEQ/L Carbon Dioxide Level 26.3 MEQ/L Anion Gap 8 MEQ/L Estimat Glomerular Filtration Rate 73 ML/MIN Triglycerides Level 225 MG/DL Cholesterol Level 149 MG/DL LDL Cholesterol 65 MG/DL HDL Cholesterol 39.3 MG/DL Cholesterol/HDL Ratio 3.79 RATIO Vitals/IOs Vital Signs Date Time Temp Pulse Resp B/P (MAP) Pulse Ox O2 Delivery O2 Flow Rate FiO2 07/30/17 06:12 99.0 98 17 131/59 (83) 98 Assessment & Plan Problem List: (1) Unspecified psychosis ICD Codes: F29 - Unspecified psychosis not due to a substance or known physiological condition Assessment & Plan Estimated LOS: days patient remained somewhat manic and psychotic, she is compliant with medications, though with no significant insight into her illness Justification for Cont. Inpt. At this time patient would decompensate a place to the lower level of care Discharge Planning To be determined Request HC Surrog/Guard Advoc?: No Nils Poole MD July 30, 2017 13:52
[2017-07-30 15:56] LABS: HEMOGLOBIN A1C 5.3 % (4.3-6.0)
[2017-07-30 17:46] VITALS: BP 92/50; PULSE 69; RESP 17; TEMP 97.4; O2SAT 97
[2017-07-31 06:11] VITALS: BP 127/80; PULSE 82; RESP 16; TEMP 99; O2SAT 97
[2017-07-31] MEDS: NICOTINE 21 MG/24 HR PATCH T-DERMAL SCH (09:00)
[2017-07-31] MEDS: QUEtiapine FUMARATE 25 MG TAB PO SCH ×2 (09:13→12:26)
[2017-07-31] MEDS: clonazePAM 0.5 MG TAB PO SCH ×2 (09:13→20:12)
[2017-07-31] MEDS: LORazepam 1 MG TAB PO PRN (11:02)
--- NOTE | 2017-07-31 14:19 | HHI.PYPN ---
Subjective Remarks Patient was seen and case discussed with nursing. Patient has poor insight into her admission. Nursing denies any bizarre behavior. She was seen being friendly with others and hugging another patient. Psychoeducation was done that this is not appropriate on the unit. Says she does not feel feel followed or watched. Denies auditory or visual hallucinations. Mental Status Examination Appearance: Appropriate Consciousness: Alert Orientation: x4 Motor Activity: Normal gait Speech: Unremarkable Language: Adequate Fund of Knowledge: Adequate Attention and Concentration: Adequate Memory: Unremarkable Mood: Appropriate Affect: Appropriate Thought Process & Associations: Intact Thought Content: Appropriate Hallucination Type: None Delusion Type: None Suicidal Ideation: No Suicidal Plan: No Suicidal Intention: No Homicidal Ideation: No Homicidal Plan: No Homicidal Intention: No Insight: Adequate Judgment: Adequate Results Vitals/IOs Vital Signs Date Time Temp Pulse Resp B/P (MAP) Pulse Ox O2 Delivery O2 Flow Rate FiO2 07/31/17 06:11 99.0 82 16 127/80 (96) 97 Assessment & Plan Problem List: (1) Unspecified psychosis ICD Codes: F29 - Unspecified psychosis not due to a substance or known physiological condition Assessment & Plan Continue current treatment plan Justification for Cont. Inpt. Patient would decompensate in a less restrictive setting Request HC Surrog/Guard Advoc?: No Silver Vasquez DO July 31, 2017 14:19
[2017-08-01 05:33] VITALS: BP 105/53; PULSE 69; RESP 16; TEMP 98.6; O2SAT 100
[2017-08-01] MEDS: NICOTINE 21 MG/24 HR PATCH T-DERMAL SCH ×3 (08:33→08:47)
[2017-08-01] MEDS: QUEtiapine FUMARATE 25 MG TAB PO SCH ×2 (08:33→12:30)
[2017-08-01] MEDS: clonazePAM 0.5 MG TAB PO SCH ×2 (08:33→20:30)
--- NOTE | 2017-08-01 14:25 | HHI.PYPN ---
Subjective Remarks Patient was seen and case discussed with nursing. Patient was seclusive to bed. She is minimally engaged in dismissive during the interview. Per nursing they have heard her yelling to herself in the room, getting her frustrations out. Continues to believe that she was unjustly admitted here. Denies suicidal or homicidal ideation intent or plan Mental Status Examination Appearance: Appropriate Consciousness: Alert Orientation: x4 Motor Activity: Normal gait Speech: Unremarkable Language: Adequate Fund of Knowledge: Adequate Attention and Concentration: Adequate Memory: Unremarkable Mood: Appropriate Affect: Appropriate Thought Process & Associations: Intact Thought Content: Appropriate Hallucination Type: None Delusion Type: None Suicidal Ideation: No Suicidal Plan: No Suicidal Intention: No Homicidal Ideation: No Homicidal Plan: No Homicidal Intention: No Insight: Adequate Judgment: Adequate Results Vitals/IOs Vital Signs Date Time Temp Pulse Resp B/P (MAP) Pulse Ox O2 Delivery O2 Flow Rate FiO2 08/01/17 05:33 98.6 69 16 105/53 (70) 100 Assessment & Plan Problem List: (1) Unspecified psychosis ICD Codes: F29 - Unspecified psychosis not due to a substance or known physiological condition Assessment & Plan Continue current treatment plan Justification for Cont. Inpt. Patient would decompensate in a less restrictive setting Request HC Surrog/Guard Advoc?: No Silver Vasquez DO August 01, 2017 14:25
[2017-08-01] MEDS: LORazepam 1 MG TAB PO PRN (22:48)
[2017-08-02 06:13] VITALS: BP 99/60; PULSE 75; RESP 16; TEMP 97.1; O2SAT 100
[2017-08-02] MEDS: NICOTINE 21 MG/24 HR PATCH T-DERMAL SCH (09:00)
[2017-08-02] MEDS: clonazePAM 0.5 MG TAB PO SCH ×2 (09:03→21:00)
[2017-08-02] MEDS: QUEtiapine FUMARATE 25 MG TAB PO SCH ×3 (09:03→20:00)
--- NOTE | 2017-08-02 10:16 | HHI.PYPN ---
Subjective Remarks Patient is seen in day room with nurse Nelson, chart reviewed, patient complaint medications, patient discussed with nurse. Patient continues somewhat intense but speech is somewhat rapid and pressured. Continue no significant insight into her problems. She does acknowledge prior psychiatric hospitalization in the [facility] who she states is for "anxiety and not sleeping". She denies suicidality or homicidality. She also goes denies voices or visions, although there is a a grandiosity to his. For now we will increase Seroquel to 25 mg 8 AM 4 PM and 8 PM Review of Systems Except as stated in HPI: all other systems reviewed are Neg Mental Status Examination Appearance: Appropriate Consciousness: Alert Orientation: x4 Motor Activity: Normal gait Speech: Unremarkable Language: Adequate Fund of Knowledge: Adequate Attention and Concentration: Adequate Memory: Unremarkable Mood: Appropriate Affect: Appropriate Thought Process & Associations: Intact Thought Content: Appropriate Hallucination Type: None Delusion Type: None Suicidal Ideation: No Suicidal Plan: No Suicidal Intention: No Homicidal Ideation: No Homicidal Plan: No Homicidal Intention: No Insight: Adequate Judgment: Adequate Results Vitals/IOs Vital Signs Date Time Temp Pulse Resp B/P (MAP) Pulse Ox O2 Delivery O2 Flow Rate FiO2 08/02/17 06:13 97.1 75 16 99/60 (73) 100 Assessment & Plan Problem List: (1) Unspecified psychosis ICD Codes: F29 - Unspecified psychosis not due to a substance or known physiological condition (2) Schizoaffective disorder, bipolar type ICD Codes: F25.0 - Schizoaffective disorder, bipolar type Assessment & Plan Estimated LOS: days patient gets in her psychotic and paranoid of the mood flavor. She medication adjustments above with further observation feels patient 's diagnosis may be better consumed under schizoaffective disorder bipolar type Justification for Cont. Inpt. At this time patient would decompensate if placed in a lower level of care Discharge Planning Patient states she wishes to return to the [facility] Request HC Surrog/Guard Advoc?: No Nils Poole MD August 02, 2017 10:16
--- NOTE | 2017-08-02 15:34 | PD.TTN ---
Patient Problems 1. Discharge planning 2. Medication compliance 3. Knowledge deficit 4. Lack of coping skills Progress Toward Goals Provider Present: Dr. Hamlet Poole (08/06/17/ Pt. needs to remain for further stabilaization.) Psychiatric Counselors Present: Mitesh Kinney Jr., [facility] (08/06/17- Pt. was ignored therapist yesterday. Therapist will try again.) Group Spec/RT/OT/LESLIE Present: ANUJ Mehta (08/06/17- Pt. often isolates to self.) Nicolas Hunt August 02, 2017 15:34
[2017-08-02 16:57] VITALS: BP 124/64; PULSE 72; RESP 18; TEMP 99.1; O2SAT 100
[2017-08-03 06:00] VITALS: BP 100/59; PULSE 64; RESP 18; TEMP 97.6; O2SAT 97
[2017-08-03] MEDS: QUEtiapine FUMARATE 25 MG TAB PO SCH ×3 (08:00→21:32)
[2017-08-03] MEDS: clonazePAM 0.5 MG TAB PO SCH ×2 (09:00→21:32)
[2017-08-03] MEDS: NICOTINE 21 MG/24 HR PATCH T-DERMAL SCH (09:00)
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
[2017-08-03 17:53] VITALS: BP 111/62; PULSE 79; RESP 16; TEMP 98.3; O2SAT 99
[2017-08-04 06:01] VITALS: BP 99/57; PULSE 65; RESP 17; TEMP 97.9; O2SAT 97
[2017-08-04] MEDS: NICOTINE 21 MG/24 HR PATCH T-DERMAL SCH (09:00)
[2017-08-04] MEDS: QUEtiapine FUMARATE 25 MG TAB PO SCH ×2 (09:12→14:32)
[2017-08-04] MEDS: clonazePAM 0.5 MG TAB PO SCH (09:12)
[2017-08-04] MEDS ORDERED: SERO25TA PO (12:03)
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
== END 2017-08-04 16:30 | disposition home or self-care (01) | DRG 885 ==
LOC: NEPJ 12:50 → NEDA 16:13 → H270 17:44 → H260 08-03 11:14
PROVIDERS: ADMIT Psychiatry & Neurology Psychiatry; ATTEND Psychiatry & Neurology Psychiatry
DX: F25.0 Schizoaffective disorder, bipolar type (principal); Z91.14 Patient's other noncompliance with medication regimen; Z88.6 Allergy status to analgesic agent; Z72.0 Tobacco use; Z88.8 Allergy status to other drugs, medicaments and biological substances; Z91.013 Allergy to seafood
CPT/HCPCS: 80048; 80053; 80061; 80307; 81001; 83036; 84703; 85025; 99285; Q0163

== ENCOUNTER 2017-12-29 16:56 | Inpatient (IN) ==
--- NOTE | 2017-12-29 23:29 | ED ---
HPI General Chief Complaint: Psychiatric Symptoms Stated Complaint: Anxiety Time Seen by Provider: 12/29/17 21:46 Source: patient Mode of arrival: ambulatory Limitations: no limitations History of Present Illness HPI Narrative: 47-year-old white female with a history of schizoaffective disorder bipolar type presents emergency department on a voluntary basis for psychological evaluation. Patient states that she has auditory hallucinations. She states that she is not currently taking any medications. She had recently moved back to [place] from [place] in the last 7 months. She lives with a friend. She states that she is not currently employed. She is hoping to to be evaluated by a psychiatrist. She states that she is also overwhelmed with anxiety. She denies any toxic ingestions. No suicidal or homicidal ideation. She denies any medical complaints. She is been eating and drinking. She does admit to having issues sleeping due to auditory hallucinations and anxiety. Related Data Home Medications Medication Instructions Recorded Confirmed No Known Home Medications 12/29/17 12/29/17 Allergies Allergy/AdvReac Type Severity Reaction Status Date / Time ibuprofen Allergy Severe RASH Unverified 07/29/17 13:06 guaifenesin Allergy Mild RASH Unverified 07/29/17 13:06 shellfish derived Allergy Unknown Verified 07/29/17 13:06 Review of Systems ROS: all other systems reviewed are negative [facility] Medical History Medical History Patient denies medical problems (Acute) Surgical History Surgical History No history of previous surgery (Acute) Social History Social History Substance History: No History of Abuse Smoking Status: Current every day smoker Tobacco Type: Cigarettes How Often Do You Have a Drink Containing Alcohol: 2 to 3 times a week Recent Travel in [facility] within the Last 8 Weeks: No Recent Out of Country Travel within the Last 8 Weeks: No Immunization History Tetanus Immunization: Unsure Exam Narrative Exam Narrative: GENERAL: Well-nourished, well-developed patient. SKIN: Warm and dry. HEAD: Normocephalic and atraumatic. EYES: No scleral icterus. No injection or drainage. ENT: No nasal drainage noted. Mucous membranes pink. Airway patent. NECK: Supple, trachea midline. Moves head freely without obvious discomfort. CARDIOVASCULAR: Regular rate and rhythm without murmurs, gallops, or rubs. RESPIRATORY: Breath sounds equal bilaterally. No accessory muscle use. GASTROINTESTINAL: Abdomen soft, non-tender, nondistended. EXTREMITIES: No cyanosis or edema. BACK: Nontender without obvious deformity. No CVA tenderness. NEURO: Patient is alert and oriented. no sensorimotor deficits. Nonfocal. Normal speech. PSYCH: Positive auditory hallucinations. Course Initial Documented Vital Signs Temperature 98.3 F 12/29/17 17:22 Pulse Rate 96 H 12/29/17 17:22 Respiratory Rate 16 12/29/17 17:22 Blood Pressure 125/57 L 12/29/17 17:22 Pulse Oximetry 100 12/29/17 17:22 Last Documented Vital Signs Temperature 98.3 F 12/29/17 17:22 Pulse Rate 96 H 12/29/17 17:22 Respiratory Rate 16 12/29/17 17:22 Blood Pressure 125/57 L 12/29/17 17:22 Pulse Oximetry 100 12/29/17 17:22 Medical Decision Making MDM Narrative Medical decision making narrative: We will obtain routine laboratory testing for medical clearance. The patient has been medically cleared. She will be evaluated by the psychiatrist in the morning. Medical Screen Exam Complete: Yes Emergency Medical Condition: Yes Differential Diagnosis Differential Diagnosis: MDM: High Differential diagnoses: Schizophrenia, schizoaffective disorder, bipolar, anxiety, depression, adjustment reaction, mood disorder NOS, ODD, depressive disorder NOS, dementia, dementia with agitation, psychosis NOS, substance induced mood disorder, DMDD, Asperger syndrome, infection,electrolyte abnormality, malingering. Mental health screening discussed with the patient. Psychiatric screen ordered. Lab Data Result diagrams: 12/29/17 23:40 12/29/17 23:40 POC Results POC Urine Results Negative Lab Results 12/29/17 12/29/17 12/29/17 Range/Units 23:40 23:40 23:40 WBC 9.9 (4.0-11.0) th/mm3 RBC 4.57 (4.00-5.30) mil/mm3 Hgb 14.7 (11.6-15.3) gm/dL Hct 43.8 (35.0-46.0) % MCV 95.9 (80.0-100.0) fL MCH 32.1 (27.0-34.0) pg MCHC 33.4 (32.0-36.0) % RDW 12.4 (11.6-17.2) % Plt Count 216 (150-450) th/mm3 MPV 8.6 (7.0-11.0) fL Neut % (Auto) 65.1 (16.0-70.0) % Lymph % (Auto) 20.8 (9.0-44.0) % [place] % (Auto) 7.4 (0.0-8.0) % Eos % (Auto) 6.0 H (0.0-4.0) % Baso % (Auto) 0.7 (0.0-2.0) % Neut # (Auto) 6.5 (1.8-7.7) th/mm3 Lymph # (Auto) 2.1 (1.0-4.8) th/mm3 [place] # (Auto) 0.7 (0.0-0.9) th/mm3 Eos # (Auto) 0.6 H (0.0-0.4) th/mm3 Baso # (Auto) 0.1 (0.0-0.2) th/mm3 WBC Differential . Differential Comment Auto diff final Sodium 140 (136-145) meq/L Potassium 4.1 (3.5-5.1) meq/L Chloride 109 H (98-107) meq/L Carbon Dioxide 25.6 (21.0-32.0) meq/L Anion Gap 5 (5-15) meq/L BUN 9 (7-18) mg/dL Creatinine 0.82 (0.50-1.00) mg/dL Estimated GFR 75 L (>89) mL/min Random Glucose 76 (74-106) mg/dL Calcium 8.9 (8.5-10.1) mg/dL Total Bilirubin 0.6 (0.2-1.0) mg/dL AST 17 (15-37) U/L ALT 19 (10-53) U/L Alkaline Phosphatase 57 (45-117) U/L Total Protein 7.0 (6.4-8.2) g/dL Albumin 3.6 (3.4-5.0) g/dL TSH 0.573 (0.358-3.740) uIU/mL Urine Opiates Screen Neg (Neg) Ur Barbiturates Screen Neg (Neg) Ur Amphetamines Screen Neg (Neg) U Benzodiazepines Scrn Neg (Neg) Urine Cocaine Screen Neg (Neg) U Cannabinoids Screen Neg (Neg) Serum Alcohol Less than 3 (0-5) mg/dL Discharge Plan Discharge Disposition Patient Disposition: 30 Still Patient Discharge Condition Condition: Stable Discharge Details Anticipated Discharge Date: 12/30/17 Physicians Team ED Provider: Oleg Abdi ED Midlevel Provider: Aaron Neves Primary Care Provider: Primary Care Lenniei,Leda Rxs /Orders / Referrals /Forms Prescriptions: No Action No Known Home Medications RF: 0 Status ED Status: Medically Cleared
[2017-12-30] LABS: Baso # (Auto) 0.1 th/mm3 (0.0-0.2); Baso % (Auto) 0.7 % (0.0-2.0); Eos # (Auto) 0.6 th/mm3 (0.0-0.4); Hematocrit 43.8 % (35.0-46.0); Hemoglobin 14.7 gm/dL (11.6-15.3); Lymph # (Auto) 2.1 th/mm3 (1.0-4.8); Lymph % (Auto) 20.8 % (9.0-44.0); Mean Corpuscular HGB Conc 33.4 % (32.0-36.0); Mean Corpuscular Hemoglobin 32.1 pg (27.0-34.0); Mean Corpuscular Volume 95.9 fL (80.0-100.0); Mean Platelet Volume 8.6 fL (7.0-11.0); Mono # (Auto) 0.7 th/mm3 (0.0-0.9); Mono % (Auto) 7.4 % (0.0-8.0); Neut # (Auto) 6.5 th/mm3 (1.8-7.7); Neut % (Auto) 65.1 % (16.0-70.0); Platelet Count 216 th/mm3 (150-450); Red Blood Count 4.57 mil/mm3 (4.00-5.30); Red Cell Distribution Width 12.4 % (11.6-17.2); White Blood Count 9.9 th/mm3 (4.0-11.0)
[2017-12-30 00:06] LABS: Amphetamine Screen,Urine Neg (Neg); Barbiturate Screen,Urine Neg (Neg); Cannabinoid Screen,Urine Neg (Neg); Cocaine Screen,Urine Neg (Neg)
[2017-12-30 00:12] LABS: Albumin 3.6 g/dL (3.4-5.0); Anion Gap 5 meq/L (5-15); Aspartate Aminotransferase 17 U/L (15-37); Blood Urea Nitrogen 9 mg/dL (7-18); Calcium 8.9 mg/dL (8.5-10.1); Carbon Dioxide 25.6 meq/L (21.0-32.0); Chloride 109 meq/L (98-107); Glomerular Filtration Rate 75 mL/min (>89); Glucose,Random 76 mg/dL (74-106); Potassium 4.1 meq/L (3.5-5.1); Sodium 140 meq/L (136-145)
[2017-12-30 00:13] LABS: Alanine Aminotransferase 19 U/L (10-53)
[2017-12-30 00:14] LABS: Opiate Screen,Urine Neg (Neg)
[2017-12-30 00:23] LABS: Alkaline Phosphatase 57 U/L (45-117); Thyroid Stimulating Hormone 0.573 uIU/mL (0.358-3.740)
--- NOTE | 2017-12-30 14:52 | ED ---
HPI - Psych - General Source: patient, old records reviewed Mode of arrival: ambulatory Limitations: no limitations - History of Present Illness MD complaint: other Onset (ago): day(s) Duration: constant History of same: Yes Relieving factors: none Exacerbating factors: none Context: not taking psychiatric medications Associated psychiatric symptoms: none Associated symptoms: denies other symptoms Treatments prior to arrival: none If self harm: other (Denies) - General Chief Complaint: Psychiatric Symptoms Stated Complaint: Anxiety Time Seen by Provider: 12/30/17 14:00 - History of Present Illness HPI Narrative: History of Present Illness HPI Narrative: 47-year-old white,single female with a history of schizoaffective disorder bipolar type presents emergency department on a voluntary basis for psychological evaluation and reporting auditory hallucinations, anxiety, impaired sleep due to the voices. She reports to me that she is being harassed by things that are being done to her through witchcraft and spells. She states that she hears voices that are mimicking type voices of people she knows but she does not disclose what they are telling her. She also tells me that she sees spirits and demons. She reports she has been having these symptoms for the past 3 years but has been embarrassed to share these with anyone. She has been receiving treatment for anxiety and was prescribed BuSpar but has not taking that medication in some time. Nurses report that patient has been screaming and yelling to get the demons out and was medicated with Ativan by ED provider. Electronic medical record is reviewed. Patient was admitted to our inpatient psychiatric unit in July 2017 with a diagnosis of unspecified psychosis. Her toxicology is negative. The patient reports that she has been here in [place] for the last 7 months and that she is living with a friend. She is unemployed. Not receiving psychiatric treatment. Patient is seen in Main ED. She is casually dressed. She is oddly related. She is somewhat guarded in her presentation but does provide some information. The patient's mood is somewhat dysphoric. She denies suicidal or homicidal ideation, intent or plan. The patient is requesting psychiatric admission in order to obtain medication. (Bria Lee) - Related Data Home Medications Medication Instructions Recorded Confirmed No Known Home Medications 12/29/17 12/29/17 Allergies Allergy/AdvReac Type Severity Reaction Status Date / Time ibuprofen Allergy Severe RASH Unverified 07/29/17 13:06 guaifenesin Allergy Mild RASH Unverified 07/29/17 13:06 shellfish derived Allergy Unknown Verified 07/29/17 13:06 PMFSH - History History Provided By: Patient - Medical History Medical History: Medical History (Last Reviewed 12/29/17 @ 23:28 by DENITA Arciniega) Patient denies medical problems - Surgical History Surgical History: Surgical History (Last Reviewed 12/29/17 @ 23:28 by DENITA Arciniega) No history of previous surgery - Social History I have reviewed the patient's Social History: Yes - Tobacco History Tobacco Use In Past 30 Days: Yes Smoking Status: Current every day smoker Tobacco Type: Cigarettes - Alcohol History How Often Do You Have a Drink Containing Alcohol: 2 to 3 times a week - Substance Use History Substance History: No History of Abuse - Travel History Recent Travel in the [facility] Within the Last 8 Weeks: No Recent Travel Out of the Country Within the Last 8 Weeks: No - Immunization History Tetanus Immunization: Unsure Psychiatric History - Psychiatric History Psychiatric Treatment History: History of Hospitalization in a Psychiatric Facility History of Inpatient Treatment: Yes Firearms in Home: No - Psychiatric History Patient has one previous admission to our inpatient psychiatric unit in July 2017 and was treated for unspecified psychosis. She failed to follow up with outpatient recommendations. (Bria Lee) Physical Exam - General Limitations: no limitations Mental Status Examination Consciousness: Alert Orientation: x4 Motor Activity: Normal gait Speech: Hesitant Language: Adequate Fund of Knowledge: Adequate Attention and Concentration: Adequate Memory: Unremarkable Mood: Anxious Affect: Appropriate Thought Process & Associations: Intact, Other Thought Content: Bizarre thinking, Delusional Hallucination Type: Auditory, Visual Delusion Type: Bizarre Suicidal Ideation: No Suicidal Plan: No Suicidal Intention: No Homicidal Ideation: No Homicidal Plan: No Homicidal Intention: No Insight: Poor Judgment: Poor Initial Documented Vital Signs Temperature 98.3 F 12/29/17 17:22 Pulse Rate 96 H 12/29/17 17:22 Respiratory Rate 16 12/29/17 17:22 Blood Pressure 125/57 L 12/29/17 17:22 Pulse Oximetry 100 12/29/17 17:22 Last Documented Vital Signs Temperature 97.9 F 12/30/17 18:35 Pulse Rate 82 12/30/17 18:35 Respiratory Rate 18 12/30/17 18:35 Blood Pressure 112/59 L 12/30/17 18:35 Pulse Oximetry 98 12/30/17 04:34 MDM - Psych - Diagnosis (1) Unspecified psychosis Status: Acute - Lab Data Result diagrams: 12/29/17 23:40 12/29/17 23:40 - MDM Narrative Medical decision making narrative: At the time of this evaluation the patient continues to endorse auditory hallucinations, and believing that someone is manipulating her mind with spells. She also endorses seen demons. She has not been taking any psychiatric medication. She will be admitted to inpatient psychiatric unit for further longitudinal observation of her mood, mental status, and her behavior. Patient agrees to medication evaluation as well and treatment with psychiatric meds. (Bria Lee) - Lab Data POC Results POC Urine Results Negative Lab Results 12/29/17 12/29/17 12/29/17 Range/Units 23:40 23:40 23:40 WBC 9.9 (4.0-11.0) th/mm3 RBC 4.57 (4.00-5.30) mil/mm3 Hgb 14.7 (11.6-15.3) gm/dL Hct 43.8 (35.0-46.0) % MCV 95.9 (80.0-100.0) fL MCH 32.1 (27.0-34.0) pg MCHC 33.4 (32.0-36.0) % RDW 12.4 (11.6-17.2) % Plt Count 216 (150-450) th/mm3 MPV 8.6 (7.0-11.0) fL Neut % (Auto) 65.1 (16.0-70.0) % Lymph % (Auto) 20.8 (9.0-44.0) % [place] % (Auto) 7.4 (0.0-8.0) % Eos % (Auto) 6.0 H (0.0-4.0) % Baso % (Auto) 0.7 (0.0-2.0) % Neut # (Auto) 6.5 (1.8-7.7) th/mm3 Lymph # (Auto) 2.1 (1.0-4.8) th/mm3 [place] # (Auto) 0.7 (0.0-0.9) th/mm3 Eos # (Auto) 0.6 H (0.0-0.4) th/mm3 Baso # (Auto) 0.1 (0.0-0.2) th/mm3 WBC Differential . Differential Comment Auto diff final Sodium 140 (136-145) meq/L Potassium 4.1 (3.5-5.1) meq/L Chloride 109 H (98-107) meq/L Carbon Dioxide 25.6 (21.0-32.0) meq/L Anion Gap 5 (5-15) meq/L BUN 9 (7-18) mg/dL Creatinine 0.82 (0.50-1.00) mg/dL Estimated GFR 75 L (>89) mL/min Random Glucose 76 (74-106) mg/dL Calcium 8.9 (8.5-10.1) mg/dL Total Bilirubin 0.6 (0.2-1.0) mg/dL AST 17 (15-37) U/L ALT 19 (10-53) U/L Alkaline Phosphatase 57 (45-117) U/L Total Protein 7.0 (6.4-8.2) g/dL Albumin 3.6 (3.4-5.0) g/dL TSH 0.573 (0.358-3.740) uIU/mL Urine Opiates Screen Neg (Neg) Ur Barbiturates Screen Neg (Neg) Ur Amphetamines Screen Neg (Neg) U Benzodiazepines Scrn Neg (Neg) Urine Cocaine Screen Neg (Neg) U Cannabinoids Screen Neg (Neg) Serum Alcohol Less than 3 (0-5) mg/dL
[2017-12-30] MEDS ORDERED: LORazepam 0.5 MG Tablet PO PRN (14:54)
[2017-12-30] MEDS ORDERED: Aluminum/Magnesium/Simethacone Susp 30 ML UDC PO PRN (14:54)
[2017-12-30] MEDS: Acetaminophen 325 MG Tablet PO PRN (23:02)
[2017-12-31 08:42] LABS: Calcium 8.7 mg/dL (8.5-10.1); Carbon Dioxide 26.5 meq/L (21.0-32.0)
[2017-12-31 08:53] LABS: Chol/HDL Ratio 3.95 Ratio; Free T4 (Free Thyroxine) 0.99 ng/dL (0.76-1.46); Thyroid Stimulating Hormone 0.505 uIU/mL (0.358-3.740)
--- NOTE | 2017-12-31 09:44 | P.HPPSY ---
Provisional Diagnosis Admission Date: December 30, 2017 15:09 [place] 1. Schizophrenia, paranoid type, acute exacerbation [place] Deferred Competence Certification of Person's Competence To Provide Express and Informed Consent I have personally examined Princess Villafana, a person being served at [facility] on, December 31, 2017 0940. Express and informed consent means consent voluntarily given in writing, by a competent person, after sufficient explanation and disclosure of the subject matter involved to enable the person to make a knowing and willful decision without any element of force, fraud, deceit, duress, or other form of constraint or coercion. This person is 18 years of age or older, is not now known to be incompetent to consent to treatment with a guardian advocate, and does not have a health care surrogate or proxy currently making medical treatment decisions. I have found this person to be one of the following: [X] Competent to provide express and informed consent, as defined above, for voluntary admission to this facility and is competent to provide express and informed consent for treatment. He/she has the consistent capacity to make well reasoned, willful, and knowing decisions concerning his or her medical or mental health treatment. The person fully and consistently understands the purpose of the admission for examination/placement and is fully capable of personally exercising all rights assured [place] [] Incompetent to provide express and informed consent to voluntary admission, and this is incompetent to provide express and informed consent to treatment. The person must be transferred to involuntary status and a petition for a guardian advocate filed with the Circuit Court. [] Refusing to provide express and informed consent to voluntary admission but is competent to provide express and informed consent for treatment. The person must be discharged or transferred to involuntary status. Form shall be completed within 24 hours of a person's arrival at the receiving facility and filed in the clinical record of each person: 1. Admitted on a voluntary basis 2. Permitted to provide express and informed consent to his/her own treatment 3. Allowed to transfer from involuntary to voluntary status 4. Prior to permitting a person to consent to his or her own treatment after having been previously found incompetent to consent to treatment. History of Present Illness Capacity: Has capacity Chief Complaint: Psychosis History of Present Illness: Ms. Villafana is a 47-year-old female with history of psychosis who presented to the emergency department voluntarily complaining of hallucinations. The patient was evaluated by the psychiatric nurse practitioner in the emergency department. Reviewing the electronic medical record, I note that the patient was psychiatrically admitted under Dr. Poole in July of this year and was placed on Seroquel at that time. Patient seen and examined with nurse. Chart reviewed. Case discussed with nursing staff. On my examination today, the patient believes that she is the victim of persecution at the hands of several individuals including her ex- . She believes that these individuals are purchasing demons for $39 online and sending them to attack her. She recalls one episode in particular where she received a voicemail with a male voice with a accent saying "send demons to her. Take her to the supervisor burling and joining in [place]." She endorses violent ideation directed against the people who she believes are attacking her noting "I want them gone." No reported urge to hurt anyone on the inpatient psychiatric unit. She denies any suicidal ideation. She does note that she feels fairly safe in the hospital setting, although she is confident that the attack is ongoing outside. She endorses audiovisual hallucinations of "pentecostalism, stupid stuff." No reported command auditory hallucinations to hurt self or others. Sleep is poor. Affect is dysphoric. Remainder of the psychiatric ROS is negative. No acute physical complaints. Past psychiatric history: The patient reports a history of psychosis. She is not presently under the care of a psychiatrist nor is she taking psychotropic medications. Most recent psychiatric admission was here at [facility]. She denies a history of suicide attempts. Family history: The patient denies family history of mental illness. Chemical dependency history: The patient denies any abuse of drugs or alcohol. Social history: The patient reports that she lives alone. She is a [employer]. 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 She most recently worked at [employer] but had to leave that position because she believed that people were "sending sances" against her. She is . She denies access to guns or firearms. She denies any legal issues. No reported history of trauma. Past medical history: Patient denies any medical issues. Medications: Patient reports she takes no home medications. Allergies: To Robitussin per patient. - Inpatient Certification I certify that the inpatient services were ordered in accordance with Medicare regulations governing the order. This includes certification that hospital inpatient services are reasonable and necessary and in the case of services not specified as inpatient-only under 42 CFR 419.22(n), that they are appropriately provided as inpatient services in accordance to with the 2-midnight benchmark under 43 CFR 412.3(e) I certify that inpatient psychiatric hospital services are medically necessary. Evaluation and treatment and/or diagnostic testing are expected to improve the patient's condition. The patient needs on a daily basis, active treatment furnished directly by or requiring the supervision of inpatient psychiatric facility personnel. Estimated Total Length of Stay (Days): 7 Plans for Post Hospital Care: Not yet determined Review of Systems All other systems reviewed negative except as stated in HPI [facility] - History History Provided By: Patient - Medical History Medical History: Medical History (Last Reviewed 12/29/17 @ 23:28 by DENITA Arciniega) Patient denies medical problems - Surgical History Surgical History: Surgical History (Last Reviewed 12/29/17 @ 23:28 by DENITA Arciniega) No history of previous surgery - Tobacco History Second Hand Smoke Exposure: No Tobacco Use In Past 30 Days: Yes Smoking Status: Current every day smoker Tobacco Type: Cigarettes - Alcohol History How Often Do You Have a Drink Containing Alcohol: 2 to 3 times a week - Substance Use History Substance History: No History of Abuse - Travel History Recent Travel in the [place] Within the Last 8 Weeks: No Recent Travel Out of the Country Within the Last 8 Weeks: No - Immunization History Tetanus Immunization: Unsure Hx Influenza Vaccine This Season: No Quality Measures - Patient Strengths Patient's strengths (minimum of 2): In a monitored setting. Verbally fluent. Medications and Allergies Active Medications: Active Medications Acetaminophen (Tylenol) 650 mg PO Q4H PRN PRN Reason: PAIN OR FEVER Last Admin: 12/30/17 23:02 Dose: 650 mg Al Hydrox/Mg Hydrox/Simethicone (Mag-Al Plus Susp Liq) 30 ml PO Q6H PRN PRN Reason: DYSPEPSIA Al Hydroxide/Mg Hydroxide (Milk Of Magnesia Liq) 30 ml PO Q12H PRN PRN Reason: Mild Constipation Lorazepam (Ativan) 0.5 mg PO Q12H PRN PRN Reason: MODERATE TO SEVERE ANXIETY Sennosides (Senokot) 17.2 mg PO Q12H PRN PRN Reason: Moderate Constipation Allergies Allergy/AdvReac Type Severity Reaction Status Date / Time ibuprofen Allergy Severe RASH Unverified 07/29/17 13:06 guaifenesin Allergy Mild RASH Unverified 07/29/17 13:06 shellfish derived Allergy Unknown Verified 07/29/17 13:06 Home Medications Medication Instructions Recorded Confirmed Type No Known Home Medications 12/29/17 12/29/17 History Results - Labs CBC & Chem 7: 12/29/17 23:40 12/31/17 07:47 Labs: Laboratory Results - last 24 hr 12/31/17 12/31/17 07:47 07:47 Sodium 140 Potassium 4.0 Chloride 108 H Carbon Dioxide 26.5 Anion Gap 6 BUN 15 Creatinine 0.85 Estimated GFR 72 L Random Glucose 99 Calcium 8.7 Triglycerides 161 H Cholesterol 170 LDL Cholesterol, Calc 95 HDL Cholesterol 43.0 Cholesterol/HDL Ratio 3.95 TSH 0.505 Free T4 0.99 Beta HCG, Quant Less than 1 Labs reviewed. Exam Vital signs: Vital Signs 12/30/17 18:35 Temperature 97.9 F Pulse Rate 82 Respiratory Rate 18 Blood Pressure 112/59 L Intake & Output 12/30/17 12/31/17 12/31/17 18:59 06:59 18:59 Weight 51 kg Other: Weight On Admission 60 kg Narrative: Physical examination completed by ED provider. On my examination today, the patient appears to be in no acute physical distress. No motor abnormalities noted. Labs and vital signs reviewed. Mental Status Examination Appearance: Appropriate Consciousness: Alert Orientation: Person, Place (At least) Motor Activity: Other (No motor abnormalities noted) Speech: Unremarkable Language: Other (Somewhat rambling) Fund of Knowledge: Adequate Attention and Concentration: Adequate Memory: Unremarkable (Psychosis interferes but otherwise grossly intact on clinical exam) Mood: Anxious Affect: Anxious, Other (Somewhat dysphoric) Thought Process & Associations: Linear (Within delusional system) Thought Content: Bizarre thinking, Delusional Hallucination Type: Auditory, Visual Delusion Type: Bizarre, Paranoid Suicidal Ideation: No Suicidal Plan: No Suicidal Intention: No Homicidal Ideation: Yes Homicidal Plan: No Homicidal Intention: No (No reported urge to hurt anyone on the inpatient unit) Insight: Poor Judgment: Poor Assessment and Plan - Assessment (1) Paranoid type schizophrenia, chronic state with acute exacerbation Code(s): F20.0 - Paranoid schizophrenia Status: Acute - Plan Plan: 47-year-old female with psychiatric history as detailed above who presents voluntarily for psychiatric evaluation. On my examination today, the patient elaborates a complex, systematized delusion in which she believes she is the victim of demon attack at the hands of several individuals including her ex- . She does endorse some violent ideation directed against people whom she believes are attacking her. Patient requires psychiatric hospitalization at this time for safety, observation and stabilization. Admit inpatient. Voluntary status. For management of the patient's psychosis I will initiate Risperdal 1 mg twice daily with plans to titrate to effect. Check EKG for QTC. Atarax as needed for anxiety. Cogentin as needed for EPS. Melatonin as needed for sleep. R/B/A for medications discussed with patient including the metabolic and motor side effects of antipsychotic therapy. We also discussed the possibility of initiating long-acting injectable antipsychotic. Vitals every shift. Counselor to see. Collateral information. Disposition planning. Estimated length of stay: 5-7 days. Justification for Continued Inpatient Stay: See above Discharge Planning: Pending psychiatric stabilization Request Healthcare Surrogate/Guardian Advocate?: No
[2017-12-31] MEDS ORDERED: Benztropine Inj 2 MG/2 ML Ampul IM PRN (09:50)
[2017-12-31 09:53] LABS: Hemoglobin A1c 5.1 % (4.3-6.0)
[2017-12-31] MEDS: risperiDONE 1 MG ODT PO SCH ×2 (12:37→20:16)
--- NOTE | 2017-12-31 19:22 | ECG ---
Date Performed: 12/31/2017 Time Performed: 11:09:08 PTAGE: 47 years EKG: Sinus rhythm NONSPECIFIC T-WAVE ABNORMALITY BORDERLINE ECG NO PREVIOUS TRACING DOCTOR: Phoenix Steward Interpretating Date/Time 12/31/2017 19:20:55
[2017-12-31] MEDS: Acetaminophen 325 MG Tablet PO PRN (20:17)
[2018-01-01] MEDS: risperiDONE 1 MG ODT PO SCH ×2 (08:18→20:08)
[2018-01-01] MEDS: Acetaminophen 325 MG Tablet PO PRN (11:02)
--- NOTE | 2018-01-01 18:43 | P.PNPSY ---
Subjective Chief Complaint: Psychosis Remarks: Reviewed electronic medical records and discussed case with staff. Follow-up was conducted in the hallway with OLEG Barrera present. Patient has rapid pressured speech. She attempts to describe the auditory hallucinations she has been experiencing. She reports that she has had "sleepless nights of harassment". She was on to say that "when I am around electrical equipment it amplifies". She struggles to explain exactly the nature of the voices whether it is one or many as well as what they say. At times she seems to become somewhat disorganized in the telling of the story and seems to be a bit tangential veering off into a story about demons and a previous boyfriend. Mental Status Examination Appearance: Appropriate Consciousness: Alert Orientation: Person, Place (At least) Motor Activity: Other (No motor abnormalities noted) Speech: Unremarkable Language: Other (Somewhat rambling) Fund of Knowledge: Adequate Attention and Concentration: Adequate Memory: Unremarkable (Psychosis interferes but otherwise grossly intact on clinical exam) Mood: Anxious Affect: Anxious, Other (Somewhat dysphoric) Thought Process & Associations: Linear (Within delusional system) Thought Content: Bizarre thinking, Delusional Hallucination Type: Auditory, Visual Delusion Type: Bizarre, Paranoid Suicidal Ideation: No Suicidal Plan: No Suicidal Intention: No Homicidal Ideation: Yes Homicidal Plan: No Homicidal Intention: No (No reported urge to hurt anyone on the inpatient unit) Insight: Poor Judgment: Poor Assessment and Plan - Assessment (1) Paranoid type schizophrenia, chronic state with acute exacerbation Code(s): F20.0 - Paranoid schizophrenia Status: Acute - Plan Plan: 47-year-old female with psychiatric history as detailed above who presents voluntarily for psychiatric evaluation. On my examination today, the patient elaborates a complex, systematized delusion in which she believes she is the victim of demon attack at the hands of several individuals including her ex- . She does endorse some violent ideation directed against people whom she believes are attacking her. Patient requires psychiatric hospitalization at this time for safety, observation and stabilization. Admit inpatient. Voluntary status. For management of the patient's psychosis I will initiate Risperdal 1 mg twice daily with plans to titrate to effect. Check EKG for QTC. Atarax as needed for anxiety. Cogentin as needed for EPS. Melatonin as needed for sleep. R/B/A for medications discussed with patient including the metabolic and motor side effects of antipsychotic therapy. We also discussed the possibility of initiating long-acting injectable antipsychotic. Vitals every shift. Counselor to see. Collateral information. Disposition planning. Estimated length of stay: 5-7 days. Justification for Continued Inpatient Stay: Moving this patient to a less restrictive environment would likely result in decompensation. Request Healthcare Surrogate/Guardian Advocate?: No
[2018-01-01] MEDS: Melatonin 5 MG Tablet PO PRN (22:19)
[2018-01-02] MEDS: risperiDONE 1 MG ODT PO SCH ×2 (08:31→20:24)
--- NOTE | 2018-01-02 16:30 | P.PNPSY ---
Subjective Chief Complaint: Psychosis Remarks: Reviewed electronic medical records and discussed case with staff. Follow-up was conducted in patient's room . Patient states that she is experiencing increased anxiety. She is cooperative and quiet. She is preoccupied with discharge. She is medication compliant. Denies AVH, Denies SI/HI. Review of Systems All other systems reviewed negative except as stated in HPI Mental Status Examination Appearance: Appropriate Consciousness: Alert Orientation: Person, Place (At least) Motor Activity: Other (No motor abnormalities noted) Speech: Unremarkable Language: Other (Somewhat rambling) Fund of Knowledge: Adequate Attention and Concentration: Adequate Memory: Unremarkable (Psychosis interferes but otherwise grossly intact on clinical exam) Mood: Anxious Affect: Anxious, Other (Somewhat dysphoric) Thought Process & Associations: Linear (Within delusional system) Thought Content: Bizarre thinking, Delusional Hallucination Type: Auditory, Visual Delusion Type: Bizarre, Paranoid Suicidal Ideation: No Suicidal Plan: No Suicidal Intention: No Homicidal Ideation: Yes Homicidal Plan: No Homicidal Intention: No (No reported urge to hurt anyone on the inpatient unit) Insight: Poor Judgment: Poor Assessment and Plan - Assessment (1) Paranoid type schizophrenia, chronic state with acute exacerbation Code(s): F20.0 - Paranoid schizophrenia Status: Acute - Plan Plan: Continue current treatment plan. Patient will be seen by Psychiatrist on Wednesday. Justification for Continued Inpatient Stay: Moving patient to a less restrictive environment may result in her decompensation. Request Healthcare Surrogate/Guardian Advocate?: No
[2018-01-03] MEDS: risperiDONE 1 MG ODT PO SCH (08:49)
--- NOTE | 2018-01-03 11:13 | P.PNPSY ---
Subjective Chief Complaint: Psychosis Remarks: Patient seen and examined with nurse. Chart reviewed. Case discussed with nursing staff. Patient noted to be somewhat anxious. Case discussed with counselor. On my examination today, the patient presents as somewhat tangential and complains of poor sleep. Prior to the interview, I observed the patient talking to herself saying "now go to [place]" and gently slapping herself on the head. When I ask her about this behavior in the interview, she downplays the significance of this behavior. She exhibits poor eye contact. She denies SI/HI and says that the Risperdal has "brought the voices down from 100% to 10%." I suggest long-acting injectable and discuss her options with the patient. She initially seems receptive to initiation of such an agent but then declines, saying she will consider it on an outpatient basis. She is agreeable to titration of her oral Risperdal to target residual symptoms however. No side effects from medications. No physical complaints. She expresses appreciation for the care she is receiving here. Vital Signs Temp Pulse Resp BP Pulse Ox 01/03/18 06:00 98.9 F 61 17 104/54 L 98 01/02/18 18:57 98.3 F 88 100/59 L 98 Intake and Output 01/02/18 01/03/18 01/03/18 22:59 06:59 14:59 Other: Weight 53.8 kg Labs reviewed. No new labs. Review of Systems All other systems reviewed negative except as stated in HPI Mental Status Examination Appearance: Appropriate Consciousness: Alert Orientation: Person, Place (At least) Motor Activity: Other (No abnormal motor movements noted.) Speech: Unremarkable Language: Adequate Fund of Knowledge: Adequate Attention and Concentration: Adequate Memory: Unremarkable (Psychosis interferes but otherwise grossly intact on clinical exam) Mood: Other (Calm) Affect: Blunt Thought Process & Associations: Intact Thought Content: Bizarre thinking Hallucination Type: Other (Reports decreased auditory hallucinations) Delusion Type: Other (Some degree of underlying delusional material is still suspected) Suicidal Ideation: No Suicidal Plan: No Suicidal Intention: No Homicidal Ideation: No Homicidal Plan: No Homicidal Intention: No Mental Status Exam Remarks: Insight and judgment are improving versus initial presentation Assessment and Plan - Assessment (1) Paranoid type schizophrenia, chronic state with acute exacerbation Code(s): F20.0 - Paranoid schizophrenia Status: Acute - Plan Plan: Titrate oral Risperdal to 1 mg in the morning and 2 mg at bedtime to target residual psychiatric symptoms. We will revisit long-acting injectable antipsychotic in succeeding days. Continue to monitor on the inpatient unit. Continue other medications and care as ordered. Justification for Continued Inpatient Stay: Medication changes. Impairment in reality construction. Risk for decompensation in less restrictive environment. Discharge Planning: Pending psychiatric stabilization. Request Healthcare Surrogate/Guardian Advocate?: No
[2018-01-03] MEDS: Melatonin 5 MG Tablet PO PRN (20:18)
--- NOTE | 2018-01-04 10:52 | P.PNPSY ---
Subjective Chief Complaint: Psychosis Remarks: Patient seen and examined with nurse and counselor. Chart reviewed. Case discussed with nursing staff. Case discussed in treatment team. On my examination today, the patient continues to elaborate delusional material about being the victim of demonic attack. She denies any suicidal or homicidal ideation says that she feels upset that she is still being attacked in this way. She endorses auditory hallucinations of "discussion" but denies any command auditory hallucinations to hurt herself or others. She denies side effects from medications. She continues to decline long-acting injectable antipsychotic. She has no physical complaints. Counselor indicates that patient's family has been calling trying to involve themselves in her care, but patient flatly refuses to allow us to reach out to any family. Vital Signs Temp Pulse Resp BP Pulse Ox 01/04/18 06:17 97.7 F 73 17 98/51 L 96 Labs reviewed. No new labs. Review of Systems All other systems reviewed negative except as stated in HPI Mental Status Examination Appearance: Appropriate Consciousness: Alert Orientation: Person, Place (At least) Motor Activity: Other (No motor abnormalities noted) Speech: Unremarkable Language: Adequate Fund of Knowledge: Adequate Attention and Concentration: Adequate Memory: Unremarkable (Psychosis interferes but otherwise grossly intact on clinical exam) Mood: Irritable (Mild) Affect: Blunt Thought Process & Associations: Intact Thought Content: Bizarre thinking, Delusional Hallucination Type: Auditory (Noncommand) Delusion Type: Paranoid Suicidal Ideation: No Suicidal Plan: No Suicidal Intention: No Homicidal Ideation: No Homicidal Plan: No Homicidal Intention: No Insight: Poor Judgment: Poor Assessment and Plan - Assessment (1) Paranoid type schizophrenia, chronic state with acute exacerbation Code(s): F20.0 - Paranoid schizophrenia Status: Acute - Plan Plan: Titrate Risperdal to 2 mg twice daily to target residual psychotic symptoms. Continue to monitor on the inpatient unit. Continue other medications and care as ordered. Justification for Continued Inpatient Stay: Medication changes. Impairment in reality construction. High risk for decompensation in less restrictive environment. Discharge Planning: Pending psychiatric stabilization. Patient is somewhat discharge focused, but I have encouraged her to remain for further treatment. I did remind her of her right to complete an ROR, should she wish to do so. Request Healthcare Surrogate/Guardian Advocate?: No
[2018-01-04] MEDS ORDERED: Sodium Chloride 0.65% Nasal Drops/Spray 30 ML Bottle EACH NARE PRN (15:51)
[2018-01-04] MEDS: Melatonin 5 MG Tablet PO PRN (21:10)
--- NOTE | 2018-01-05 09:42 | P.PNPSY ---
Subjective Chief Complaint: Psychosis Remarks: Patient seen and examined with nurse. Chart reviewed. Case discussed with nursing staff who reports patient slept well but continues to experience auditory hallucinations and is disorganized at times. On my examination today, the patient seems to be gaining insight regarding her psychiatric condition. She is open to accepting a psychotic disorder diagnosis. She seems less sure that she is the victim of demonic attack saying "I do not have any proof." However, I get the sense that she is still troubled by beliefs that she is the victim of such an attack. She does feel like the Risperdal is helping and says that she is sleeping better with this medication. She denies side effects from medications. She has no physical complaints. Patient is agreeable to further observation on the inpatient unit and for transfer to the lower acuity unit today. Vital Signs Temp Pulse Resp BP Pulse Ox 01/05/18 05:43 97.8 F 75 17 101/53 L 98 01/04/18 19:00 98.1 F 76 17 116/55 L 98 Labs reviewed. Review of Systems All other systems reviewed negative except as stated in HPI Mental Status Examination Appearance: Appropriate Consciousness: Alert Orientation: Person, Place (At least) Motor Activity: Other (No abnormal motor movements noted) Speech: Unremarkable Language: Adequate Fund of Knowledge: Adequate Attention and Concentration: Adequate Memory: Unremarkable (Psychosis interferes but otherwise grossly intact on clinical exam) Mood: Appropriate Affect: Appropriate Thought Process & Associations: Intact Thought Content: Bizarre thinking, Delusional Hallucination Type: None Delusion Type: Paranoid (Perhaps decreasing) Suicidal Ideation: No Homicidal Ideation: No Insight: Poor (Perhaps improving) Judgment: Poor Assessment and Plan - Assessment (1) Paranoid type schizophrenia, chronic state with acute exacerbation Code(s): F20.0 - Paranoid schizophrenia Status: Acute - Plan Plan: Continue current dose of Risperdal as ordered. Patient does seem to be improving with this agent. We might consider further titration of this agent, perhaps tomorrow. Could consider revisiting possibility of initiating long- acting injectable antipsychotic while still on the inpatient unit. Transfer to 2600 unit today. Continue other medications and care as ordered. Justification for Continued Inpatient Stay: Risk for decompensation in less restrictive environment. Resolving impairments in reality construction. Discharge Planning: Pending psychiatric stabilization. Request Healthcare Surrogate/Guardian Advocate?: No
[2018-01-05] MEDS: Melatonin 5 MG Tablet PO PRN (22:09)
--- NOTE | 2018-01-06 13:39 | P.PNPSY ---
Subjective Chief Complaint: Psychosis Remarks: Patient seen and examined with nurse as well as primary care nurse practitioner from [facility], who will assist the patient with linking with outpatient mental health after discharge. Case discussed with nursing staff. On my examination today, the patient reports decreased intensity in auditory hallucinations. Delusions of demonic attack persist but seem less distressing for the patient. No SI or HI. No side effects from medications. Agreeable to titration of Risperdal. No physical complaints. Vital Signs Temp Pulse Resp BP Pulse Ox 01/06/18 06:00 98.1 F 70 16 99/55 L 98 01/05/18 18:33 97.3 F L 93 H 18 99/56 L 98 Intake and Output 01/06/18 01/06/18 01/06/18 06:59 14:59 22:59 Other: Weight 55.8 kg Labs reviewed. No new labs. Review of Systems All other systems reviewed negative except as stated in HPI Mental Status Examination Appearance: Appropriate Consciousness: Alert Orientation: Person, Place (At least) Motor Activity: Other (No motor abnormalities noted) Speech: Unremarkable Language: Adequate Fund of Knowledge: Adequate Attention and Concentration: Adequate Memory: Unremarkable (Psychosis interferes but otherwise grossly intact on clinical exam) Mood: Appropriate Affect: Appropriate Thought Process & Associations: Intact Thought Content: Bizarre thinking, Hallucinations, Delusional Hallucination Type: Auditory (Minimal) Delusion Type: Paranoid (Decreasing) Suicidal Ideation: No Homicidal Ideation: No Insight: Fair Mental Status Exam Remarks: Judgment is fair Assessment and Plan - Assessment (1) Paranoid type schizophrenia, chronic state with acute exacerbation Code(s): F20.0 - Paranoid schizophrenia Status: Acute - Plan Plan: Patient is improving with Risperdal, and delusional material that persists may be fixed. Titrate Risperdal to 3 mg twice daily to target residual psychiatric symptoms. I have revisited long-acting injectable and encouraged her to work with Markos Ridley primary care nurse practitioner to obtain this medication on an outpatient basis. Continue other medications and care as ordered. Justification for Continued Inpatient Stay: Medication changes. Discharge Planning: Possible discharge tomorrow, Wednesday. Request Healthcare Surrogate/Guardian Advocate?: No
[2018-01-06 18:19] VITALS: BP 96/52; PULSE 76; RESP 20; TEMP 98.2; O2SAT 96
[2018-01-06] MEDS: Melatonin 5 MG Tablet PO PRN (21:06)
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
--- NOTE | 2018-01-07 11:21 | P.PNPSY ---
Subjective Chief Complaint: Psychosis Mental Status Examination Appearance: Appropriate Consciousness: Alert Orientation: Person, Place (At least) Motor Activity: Other (No motor abnormalities noted) Speech: Unremarkable Language: Adequate Fund of Knowledge: Adequate Attention and Concentration: Adequate Memory: Unremarkable (Psychosis interferes but otherwise grossly intact on clinical exam) Mood: Appropriate Affect: Appropriate Thought Process & Associations: Intact Thought Content: Bizarre thinking, Hallucinations, Delusional Hallucination Type: Auditory (Minimal) Delusion Type: Paranoid (Decreasing) Suicidal Ideation: No Suicidal Plan: No Suicidal Intention: No Homicidal Ideation: No Homicidal Plan: No Homicidal Intention: No Insight: Fair Judgment: Poor Assessment and Plan - Assessment (1) Paranoid type schizophrenia, chronic state with acute exacerbation Code(s): F20.0 - Paranoid schizophrenia Status: Acute - Plan Request Healthcare Surrogate/Guardian Advocate?: No
== END 2018-01-07 12:55 | disposition home or self-care (01) ==
LOC: NEPD 16:56 → NEDA 12-30 15:09 → H270 12-30 17:52 → H260 01-05 13:08
PROVIDERS: ADMIT Psychiatry & Neurology Psychiatry; ATTEND Psychiatry & Neurology Psychiatry